=== PATIENT | male | born 1990 | race Hispanic/Latino ===

== ENCOUNTER 2018-11-05 11:06 | Emergency (ER) | payer OTHER ==
[2018-11-05] MEDS ORDERED: KETOROLAC TROMETHAMINE 60 MG/2 ML VIAL ONE (11:56)
== END 2018-11-05 12:18 | disposition home or self-care (01) ==
LOC: EDH 11:06
DX: K64.8 Other hemorrhoids (principal)
CPT/HCPCS: 96372; 99283; J1885